=== PATIENT | male | born 2000 | race Caucasian/White ===

== ENCOUNTER 2019-10-05 15:27 | Emergency (ER) | payer BC ==
[2019-10-05] MEDS ORDERED: LIDOCAINE 1% W/EPI 1:100,000 MDV 20 ML VIAL ONE (15:41)
--- NOTE | 2019-10-05 15:58 | ER ---
Nurse's Notes [facility] Name: Tawanda Lozada Age: 19 yrs Sex: Male : 2000 Arrival Date: 10/05/2019 Time: 15:32 Bed 18 Private MD: Diagnosis: Laceration without foreign body of scalp Presentation: 10/04 15:34 Chief complaint: Patient states: Pt was jumping up and down and hit head on a shelf, ah laceration to top left of head. Coronavirus screen: Proceed with normal triage. Ebola Screen: No symptoms or risks identified at this time. Complicating Factors: There are no complicating factors for this patient. Initial Sepsis Screen: Does the patient meet any 2 criteria? No. Patient's initial sepsis screen is negative. Does the patient have a suspected source of infection? No. Patient's initial sepsis screen is negative. Risk Assessment: Do you want to hurt yourself or someone else? Patient reports no desire to harm self or others. Onset of symptoms was October 05, 2019. 15:34 Method Of Arrival: Law Enforcement: Brittani PRUITT 15:34 Acuity: REYNALDO 3 Historical: - Allergies: 15:38 No Known Allergies; - Home Meds: 15:38 Effexor Oral [Active]; Abilify oral oral [Active]; - PMHx: 15:38 Bipolar disorder; Depression; psychosis; PTSD; - PSHx: 15:39 None; - Immunization history:: Adult Immunizations up to date. - Social history:: Smoking status: Patient/guardian denies using tobacco, the patient reports quitting approximately 2 years ago. Screenin:40 Abuse screen: Denies threats or abuse. Nutritional screening: No deficits noted. Tuberculosis screening: No symptoms or risk factors identified. Fall Risk None identified. Assessment: 15:30 General: Appears in no apparent distress. Pain: Denies pain. Neuro: Level of Consciousness is awake, alert, obeys commands, Oriented to person, place, time, situation, Appropriate for age Denies blurred vision headache. Respiratory: Airway is patent Respiratory effort is even, unlabored, Respiratory pattern is regular, symmetrical. Musculoskeletal: No signs and/or symptoms reported regarding the musculoskeletal system. Injury Description: Laceration sustained to top of head is 0.5 to 2.5 cm long, was sustained 1-2 hours ago. is bleeding moderately. 16:00 Reassessment: Applied AMBER, non adhesive gauze and secured with tape to laceration. Vital Signs: 15:47 BP 126 / 78; Pulse 121; Resp 18; Temp 99.2; Pulse Ox 98% ; Weight 74.84 kg; Height 5 ft. 11 in. (180.34 cm); 15:47 Body Mass Index 23.01 (74.84 kg, 180.34 cm) ED Course: 15:32 Patient arrived in ED. 15:32 Ava Huang FNP-C is [facility]. 15:32 Marco Antonio Bianchi MD is Attending Physician. 15:34 Coral Christian, RN is Primary Nurse. 15:36 Triage completed. 15:45 Wound care: to laceration located on top of head with normal saline and chlorhexidine. [facility] 16:00 Patient did not have IV access during this emergency room visit. 16:11 Assist provider with laceration repair using dominguez. Set up tray. Performed by Ava CHASE Dressed with Neosporin, non adhesive Patient tolerated well. 16:12 Patient has correct armband on for positive identification. Bed in low position. Call light in reach. Security at bedside. Pulse ox on. NIBP on. Administered Medications: 15:45 Drug: Lidocaine-Epinephrine -1%: (1:100,000) 1 vials {Note: KIRK Escalante used for laceration repair.} Volume: 20 ml; Route: Infiltration; Outcome: 15:57 Discharge ordered by . 16:10 Discharged to Law Enforcement 16:10 Condition: good 16:10 Discharge instructions given to patient, police, Instructed on discharge instructions, follow up and referral plans. wound care, Demonstrated understanding of instructions, follow-up care, wound care. 16:13 Patient left the ED. Signatures: Ava Huang FNP-C FNP-Ckb Herrera, Deanna 3 Coral Christain, RN RN
--- NOTE | 2019-10-05 15:58 | EDPHYS ---
Physician Documentation [facility] Name: Tawanda Lozada Age: 19 yrs Sex: Male : 2000 Arrival Date: 10/05/2019 Time: 15:32 Bed 18 Private MD: ED Physician Marco Antonio Bianchi HPI: 10/04 15:35 This 19 yrs old Male presents to ER via Law Enforcement with complaints of kb Laceration To Head. 15:35 The patient has a laceration related to: jumped and hit head on cubbies above him kb occurred jail, and there are no complicating factors. The injury was accidental. The laceration(s) is(are) located on the top of head. Onset: The symptoms/episode began/occurred just prior to arrival. Associated signs and symptoms: The patient has no apparent associated signs or symptoms. The patient has not experienced similar symptoms in the past. The patient has not recently seen a physician. Pt states he got sprayed and jumped out of the way to avoid it hitting head on the cubbies above him. Laceration to top of scalp. Denies LOC, headache, visual changes, dizziness or any other symptoms. Bleeding controlled. . Historical: - Allergies: 15:38 No Known Allergies; - Home Meds: 15:38 Effexor Oral [Active]; Abilify oral oral [Active]; - PMHx: 15:38 Bipolar disorder; Depression; psychosis; PTSD; - PSHx: 15:39 None; - Immunization history:: Adult Immunizations up to date. - Social history:: Smoking status: Patient/guardian denies using tobacco, the patient reports quitting approximately 2 years ago. ROS: 15:35 Constitutional: Negative for fever, chills, and weight loss, Eyes: Negative for injury, kb pain, redness, and discharge, Neck: Negative for injury, pain, and swelling, Cardiovascular: Negative for chest pain, palpitations, and edema, Respiratory: Negative for shortness of breath, cough, wheezing, and pleuritic chest pain, Abdomen/GI: Negative for abdominal pain, nausea, vomiting, diarrhea, and constipation, MS/Extremity: Negative for injury and deformity, Neuro: Negative for headache, weakness, numbness, tingling, and seizure. 15:35 Skin: Positive for laceration(s), of the top of head. Exam: 15:35 Constitutional: This is a well developed, well nourished patient who is awake, alert, kb and in no acute distress. Chest/axilla: Normal chest wall appearance and motion. Nontender with no deformity. No lesions are appreciated. Cardiovascular: Regular rate and rhythm with a normal S1 and S2. No gallops, murmurs, or rubs. Normal PMI, no JVD. No pulse deficits. Respiratory: Lungs have equal breath sounds bilaterally, clear to auscultation and percussion. No rales, rhonchi or wheezes noted. No increased work of breathing, no retractions or nasal flaring. Abdomen/GI: Soft, non-tender, with normal bowel sounds. No distension or tympany. No guarding or rebound. No evidence of tenderness throughout. MS/ Extremity: Pulses equal, no cyanosis. Neurovascular intact. Full, normal range of motion. Neuro: Awake and alert, GCS 15, oriented to person, place, time, and situation. Cranial nerves II-XII grossly intact. Motor strength 5/5 in all extremities. Sensory grossly intact. Cerebellar exam normal. Normal gait. 15:35 Head/face: Noted is no obvious of injury or deformity except a laceration(s), that is superficial, 3.5 cm(s), of the top of head. Vital Signs: 15:47 BP 126 / 78; Pulse 121; Resp 18; Temp 99.2; Pulse Ox 98% ; Weight 74.84 kg; Height 5 ah ft. 11 in. (180.34 cm); 15:47 Body Mass Index 23.01 (74.84 kg, 180.34 cm) Laceration: 15:56 Wound Repair of 3.5cm ( 1.4in ) subcutaneous laceration to top of head. Linear shaped.. kb Distal neuro/vascular/tendon intact. Anesthesia: Wound infiltrated with 2 mls of 1% lidocaine w/ Epi. Wound prep: Moderate cleansing with hibiclenz by pharmaceutical development technician, Wound irrigation with saline by pharmaceutical development technician. Skin closed with 5 1-0 Maura using staple gun. Dressed with 4x4's. Patient tolerated well. MDM: 15:32 Patient medically screened. kb 15:40 Data reviewed: vital signs, nurses notes. Data interpreted: Pulse oximetry: on room air kb is 100 %. Interpretation: normal. Counseling: I had a detailed discussion with the patient and/or guardian regarding: the historical points, exam findings, and any diagnostic results supporting the discharge/admit diagnosis, the need for outpatient follow up, a family practitioner, to return to the emergency department if symptoms worsen or persist or if there are any questions or concerns that arise at home. 10/04 15:32 Order name: Dressing - Wound; Complete Time: 15:39 kb 10/04 15:32 Order name: Gloves, Sterile; Complete Time: 15:39 kb 10/04 15:32 Order name: Setup Suture Tray; Complete Time: 15:39 kb Administered Medications: 15:45 Drug: Lidocaine-Epinephrine -1%: (1:100,000) 1 vials {Note: KIRK Escalante used for ah laceration repair.} Volume: 20 ml; Route: Infiltration; Disposition: 16:35 Co-signature as Attending Physician, Marco Antonio Bianchi MD. rn Disposition: 10/05/19 15:57 Discharged to Law Enforcement. Impression: Laceration without foreign body of scalp. - Condition is Stable. - Discharge Instructions: Laceration Care, Adult, [id number], Head Injury, Adult, [id number]. - Medication Reconciliation Form, Thank You Letter, Antibiotic Education, Prescription Opioid Use form. - Follow up: Emergency Department; When: As needed; Reason: Worsening of condition. Follow up: Private Physician; When: 2 - 3 days; Reason: Recheck today's complaints, Continuance of care, Re-evaluation by your physician. Signatures: Ava Huang, PICK UP WORKER-C PICK UP WORKER-Ckb Marco Antonio Bianchi MD MD rn Harris, Amy, RN RN Corrections: (The following items were deleted from the chart) 15:58 15:57 10/05/2019 15:57 Discharged to Home. Impression: Laceration without foreign body kb of scalp. Condition is Stable. Forms are Medication Reconciliation Form, Thank You Letter, Antibiotic Education, Prescription Opioid Use. Follow up: Emergency Department; When: As needed; Reason: Worsening of condition. Follow up: Private Physician; When: 2 - 3 days; Reason: Recheck today's complaints, Continuance of care, Re-evaluation by your physician. kb 16:13 15:58 10/05/2019 15:57 Discharged to Law Enforcement. Impression: Laceration without ah foreign body of scalp. Condition is Stable. Discharge Instructions: Laceration Care, Adult, [id number], Head Injury, Adult, [id number]. Forms are Medication Reconciliation Form, Thank You Letter, Antibiotic Education, Prescription Opioid Use. Follow up: Emergency Department; When: As needed; Reason: Worsening of condition. Follow up: Private Physician; When: 2 - 3 days; Reason: Recheck today's complaints, Continuance of care, Re-evaluation by your physician. kb
[2019-10-05 16:23] VITALS: BP 126/78; TEMP 99.2; O2SAT 98
== END 2019-10-05 16:13 ==
LOC: ER 15:27
PROC: 0JQ00ZZ Repair Scalp Subcutaneous Tissue and Fascia, Open Approach (ICD-10-PCS; principal; 2019-10-05)
DX: S01.01XA Laceration without foreign body of scalp, initial encounter (principal); W22.8XXA Striking against or struck by other objects, initial encounter; Y93.89 Activity, other specified; Y92.149 Unspecified place in prison as the place of occurrence of the external cause; F31.9 Bipolar disorder, unspecified
CPT/HCPCS: 99284